=== PATIENT | female | born 1940 | race Caucasian/White ===

== ENCOUNTER 2024-11-15 13:47 | Emergency (ER) | payer MEDICARE, BC ==
[2024-11-15 14:21] LABS: #Basophils 0.04 10x3/uL (0.0-0.2); #Neutrophils 9.89 10x3/uL (1.5-8.4); %Basophils 0.3 % (0.0-2.0); %Eosinophils 0.8 % (0.0-6.0); %Lymphocytes 5.2 % (18.0-47.0); %Monocytes 7.6 % (0.0-10.0); %Neutrophils 84.1 % (40.0-75.0); Hematocrit 34.9 % (34.9-44.5); Hemoglobin 11.1 g/dL (12.0-15.5); Mean Corpuscular HGB CONC 31.8 g/dL (32.0-36.0); Mean Corpuscular Hemoglobin 32.4 pg (27.0-33.0); Mean Corpuscular Volume 101.7 fL (81.6-98.3); Mean Platelet Volume 9.4 fL (7.4-10.4); Platelet Count 253 10x3/uL (150-450); Red Blood Cell (RBC) Count 3.43 10x6/uL (3.90-5.03); White Blood Cell (WBC) Count 11.77 10x3/uL (3.5-10.5)
[2024-11-15 14:42] LABS: ALT (SGPT) 58 U/L (Less than 34); AST (SGOT) 42 U/L (11-34); Albumin 3.1 g/dL (3.1-4.5); Alkaline Phosphatase 118 U/L (40-110); Anion Gap 14 mmol/L (10-20); BUN (Urea Nitrogen) 48 mg/dL (9.8-20.1); Bilirubin, Total 0.5 mg/dL (0.3-1.2); Calc. Creatinine Clearance 0 mL/min (70-130); Calcium 9.7 mg/dL (7.8-10.44); Carbon Dioxide 18 mmol/L (23-31); Chloride 111 mmol/L (98-107); Estimated GFR 23; Globulin 3.2 g/dL (2.4-3.5); Glucose 131 mg/dL (83-110); Potassium 4.1 mmol/L (3.5-5.1); Protein, Total 6.3 g/dL (5.8-8.1); Sodium 139 mmol/L (136-145)
[2024-11-15] MEDS ORDERED: fentaNYL 50 mcg/mL 1 mL Vial ONE (14:42)
[2024-11-15] MEDS ORDERED: Iopamidol 300 61% 100 ML VIAL FS ONE (15:35)
[2024-11-15] MEDS ORDERED: traMADol HCl 50 MG TAB ONE (15:47)
== END 2024-11-15 15:57 | disposition home or self-care (01) ==
LOC: CSHERS 13:47
DX: S70.00XA Contusion of unspecified hip, initial encounter (principal); S30.0XXA Contusion of lower back and pelvis, initial encounter; I13.0 Hypertensive heart and chronic kidney disease with heart failure and stage 1 through stage 4 chronic kidney disease, or unspecified chronic kidney disease; N18.9 Chronic kidney disease, unspecified; I50.9 Heart failure, unspecified; F17.210 Nicotine dependence, cigarettes, uncomplicated; Z95.5 Presence of coronary angioplasty implant and graft; Z95.0 Presence of cardiac pacemaker; W22.8XXA Striking against or struck by other objects, initial encounter
CPT/HCPCS: 70450; 71260; 72125; 74177; 80053; 85025; 93005; J3010; 36415; 96374; Q9967